=== PATIENT | female | born 1935 | race Caucasian/White ===

== ENCOUNTER → 2016-12-11 | Outpatient (CLI) | payer OTHER ==
[~2016-12-11] MED LIST: AMLO5TAB2 PO; ASPI-498 OR; AZIT500T PO; CARV3.1240 PO; DOCU-94; GABA-339 PO; LEVO125T6 PO; LORA-352 PO; LOSA100T27 PO; MAGN400C3 PO; SUCR1TAB PO; TIOTCAP IN; TRAM-411
[2016-12-11 10:01] LABS: Mean Corpuscular Hemoglobin 29.8 pg (28.0-32.0); White Blood Cell 5.6 10^3/uL (4.4-10.8)
[2016-12-11 10:10] LABS: Urine Bilirubin Negative (Negative); Urine Blood Negative /uL (Negative); Urine Color Yellow (Yellow); Urine Glucose Normal (Normal); Urine Ketone Negative (Negative); Urine Mucus FEW (None Seen); Urine Nitrite Negative (Negative); Urine RBC 1 /hpf (0 - 4); Urine Squamous Epithelial Cell MOD /hpf (<5); Urine Urobilinogen Normal (Negative); Urine pH 6.5 (5.0-8.0)
[2016-12-11 10:14] LABS: Basophils # (auto) 0.1 uL; Basophils % (auto) 2.3 % (0.0-2.0); Eosinophils # (auto) 0.2 uL; Eosinophils % (auto) 3.3 % (0.0-7.0); Hemoglobin 14.8 g/dL (12.2-16.2); Lymphocytes # (auto) 2.1 uL; Lymphocytes % (auto) 36.8 % (10.0-50.0); Mean Corpuscular Hgb Conc. 32.8 g/dL (32.0-36.0); Mean Corpuscular Volume 90.6 fL (80.0-100.0); Mean Platelet Volume 8.8 fL (7.4-10.4); Monocytes # (auto) 0.4 uL; Monocytes % (auto) 7.5 % (0.0-12.0); Neutrophils # (auto) 2.8 uL; Neutrophils % (auto) 50.1 % (37.0-80.0); Platelet Count (auto) 255 10^3/uL (140-450); Red Cell Distribution Width 15.5 % (11.6-16.0)
[2016-12-11 10:29] LABS: Albumin 3.7 g/dL (3.4-5.0); BUN/Creatinine Ratio 14.7; Bilirubin, Total 0.4 mg/dL (0.2-1.0); Calcium 8.9 mg/dL (8.5-10.1); Potassium 4.5 mmol/L (3.5-5.1); Total Protein 7.3 g/dL (6.4-8.2)
[2016-12-11 10:46] LABS: Vitamin B12 > 2000 pg/mL (211-911)
== END | disposition home or self-care (01) ==
LOC: LAB 09:07
PROVIDERS: ATTEND Internal Medicine
DX: J44.9 Chronic obstructive pulmonary disease, unspecified (principal); E03.9 Hypothyroidism, unspecified; I10 Essential (primary) hypertension
CPT/HCPCS: 36415; 80053; 80061; 81001; 82043; 82607; 84439; 84443; 85025; 85652

== ENCOUNTER → 2017-03-12 | Outpatient (CLI) | payer OTHER ==
[2017-03-12 09:11] LABS: BUN/Creatinine Ratio 20.5; Calcium 8.7 mg/dL (8.5-10.1); Potassium 4.1 mmol/L (3.5-5.1)
== END | disposition home or self-care (01) ==
LOC: LAB 08:10
PROVIDERS: ATTEND Internal Medicine
DX: E03.9 Hypothyroidism, unspecified (principal); Z01.812 Encounter for preprocedural laboratory examination
CPT/HCPCS: 80048

== ENCOUNTER → 2017-03-29 | Outpatient (CLI) | payer OTHER ==
[2017-03-29 16:00] LABS: Allen Test Yes; Base Excess 1.7 mmol/L (-2.0-2.0); Blood 02Sat 89.2 % (96-100); Blood COHb 0.9 % (0.5-1.5); Blood MetHb 0.1 % (0.0-1.5); HCO3 25.3 mmol/L (22-26.0); HHb 10.7 % (0.0-5.0); MODE RA; O2Hb 88.3 % (94.0-97.0); PCO2 36.7 mmHg (35.0-45.0); PCO2(T) 36.7 mmHg (35.0-45.0); PO2 54.7 mmHg (80.0-100.0); PO2(T) 54.7 mmHg (80.0-100.0); Sample Type Arterial; pH 7.457 (7.350-7.450)
== END | disposition home or self-care (01) ==
LOC: RT 15:32
PROVIDERS: ATTEND Internal Medicine
DX: J43.9 Emphysema, unspecified (principal)
CPT/HCPCS: 36600; 82805

== ENCOUNTER → 2017-03-29 | Outpatient (CLI) | payer OTHER ==
[2017-03-29 16:52] LABS: Albumin 3.8 g/dL (3.4-5.0); BUN/Creatinine Ratio 21.1; Calcium 8.7 mg/dL (8.5-10.1); Potassium 4.1 mmol/L (3.5-5.1)
[2017-03-29 16:55] LABS: Bilirubin, Total 0.4 mg/dL (0.2-1.0); Total Protein 7.7 g/dL (6.4-8.2)
== END | disposition home or self-care (01) ==
LOC: LAB 16:07
PROVIDERS: ATTEND Internal Medicine
DX: E03.9 Hypothyroidism, unspecified (principal)
CPT/HCPCS: 36415; 36600; 80053; 82805

== ENCOUNTER 2017-09-06 21:25 | Inpatient (IN) | payer OTHER ==
[~2017-09-06] VITALS: Ht 152.4 cm; Wt 66.9 kg
[2017-09-06] MEDS ORDERED: IPRATROPIUM BROM 0.5 MG/2.5ML INH SOL NEB ONE (21:45)
[2017-09-06] MEDS ORDERED: ALBUTEROL SULF 2.5 MG/0.5ML(0.5%) NEB SOLN NEB ONE (21:45)
[2017-09-06] MEDS ORDERED: methylPREDNISolone SOD SUCC 125 MG/2 ML VL IV ONE (21:45)
[2017-09-06 22:01] LABS: Base Excess 1.2 mmol/L (-2.0-2.0); Blood 02Sat 87.4 % (96-100); Blood COHb 1.2 % (0.5-1.5); Blood MetHb 0.3 % (0.0-1.5); HCO3 24.9 mmol/L (22-26.0); HHb 12.4 % (0.0-5.0); MODE NASAL CANNULA; O2Hb 86.1 % (94.0-97.0); PCO2 36.8 mmHg (35.0-45.0); PCO2(T) 36.8 mmHg (35.0-45.0); PO2 49.5 mmHg (80.0-100.0); PO2(T) 49.5 mmHg (80.0-100.0); Sample Type Arterial; pH 7.449 (7.350-7.450)
[2017-09-06] MEDS ORDERED: ENALAPRILAT 1.25 MG/ML-1ML VIAL IV ONE (22:15)
[2017-09-06] MEDS ORDERED: NITROGLYCERIN 50MG/250ML 250 ML IV ONE (22:15)
[2017-09-06 22:29] LABS: Basophils # (auto) 0.1 uL; Basophils % (auto) 0.5 % (0.0-2.0); Eosinophils # (auto) 0.1 uL; Eosinophils % (auto) 0.8 % (0.0-7.0); Hematocrit 42.7 % (36.0-46.0); Hemoglobin 14.4 g/dL (12.2-16.2); Lymphocytes % (auto) 8.5 % (10.0-50.0); Mean Corpuscular Hemoglobin 30.7 pg (28.0-32.0); Mean Corpuscular Hgb Conc. 33.6 g/dL (32.0-36.0); Mean Corpuscular Volume 91.4 fL (80.0-100.0); Mean Platelet Volume 9.4 fL (6.9-10.8); Monocytes # (auto) 0.5 uL; Monocytes % (auto) 4.6 % (0.0-12.0); Neutrophils # (auto) 10.1 uL; Neutrophils % (auto) 85.6 % (37.0-80.0); Nucleated Red Blood Cells % 0.1 %; Platelet Count (auto) 179 10^3/uL (140-450); White Blood Cell 11.8 10^3/uL (4.4-10.8)
[2017-09-06 22:45] LABS: Urine Bilirubin Negative (Negative); Urine Blood Negative /uL (Negative); Urine Color Yellow (Yellow); Urine Glucose Normal (Normal); Urine Ketone Negative (Negative); Urine Nitrite Negative (Negative); Urine RBC <1 /hpf (0 - 4); Urine Squamous Epithelial Cell FEW /hpf (<5); Urine Urobilinogen Normal (Negative); Urine pH 7.5 (5.0-8.0)
[2017-09-06] MEDS ORDERED: NALBUPHINE HCL 10 MG/1ml INJECTION IV ONE (22:45)
[2017-09-06 22:47] LABS: Albumin 3.6 g/dL (3.4-5.0); Anion Gap 8 (5-15); BUN/Creatinine Ratio 19.6; Blood Urea Nitrogen 22 mg/dL (7-18); Calcium 8.4 mg/dL (8.5-10.1); Carbon Dioxide 26 mmol/L (21-32); Chloride 105 mmol/L (98-107); GFR African American 60 mL/min; GFR Non-African American 49 mL/min; Glucose 104 mg/dL (74-106); Magnesium 2.2 mg/dL (1.6-2.6); Potassium 3.6 mmol/L (3.5-5.1); Sodium 139 mmol/L (136-145)
[2017-09-06 22:59] LABS: Alkaline Phosphatase 104 U/L (45-117); Aspartate Aminotransferase 29 U/L (15-37); Bilirubin, Total 0.3 mg/dL (0.2-1.0); Total Protein 7.2 g/dL (6.4-8.2)
[2017-09-06 23:14] LABS: Temperature: 21.1 C (20.0-25.0)
[2017-09-06] MEDS ORDERED: FUROSEMIDE 20 MG/2 ML VIAL IV ONE (23:45)
[2017-09-07] MEDS ORDERED: NITROGLYCERIN 0.4 MG SL TAB SL PRN (03:45)
[2017-09-07] MEDS ORDERED: ONDANSETRON HCL 4 MG/2 ML VIAL IV PRN (03:45)
[2017-09-07] MEDS ORDERED: MORPHINE SULF INJ 2 MG/ML SYRINGE 1ML IV PRN (03:45)
[2017-09-07] MEDS ORDERED: LACTULOSE 20Gm/30ML SOLN PO PRN (03:45)
[2017-09-07] MEDS ORDERED: AZITHROMYCIN 500MG/ 250ML 250 ML IV ONE (04:00)
[2017-09-07] MEDS: methylPREDNISolone SOD SUCC 40 MG/ML VL IV SCH ×2 (04:41→16:10)
[2017-09-07] MEDS: IPRATROPIUM BROM 0.5 MG/2.5ML INH SOL NEB SCH ×5 (05:45→22:33)
[2017-09-07] MEDS: ALBUTEROL SULF 2.5 MG/0.5ML(0.5%) NEB SOLN NEB SCH ×5 (05:45→22:33)
[2017-09-07 06:42] VITALS: BP 95/58
[2017-09-07] MEDS: LEVOTHYROXINE SODIUM 50 MCG TAB PO SCH (06:48)
[2017-09-07 07:41] LABS: Basophils # (auto) 0 uL; Basophils % (auto) 0.2 % (0.0-2.0); Eosinophils # (auto) 0 uL; Hematocrit 35.9 % (36.0-46.0); Hemoglobin 11.6 g/dL (12.2-16.2); Lymphocytes # (auto) 0.8 uL; Lymphocytes % (auto) 4.4 % (10.0-50.0); Mean Corpuscular Hemoglobin 29.8 pg (28.0-32.0); Mean Corpuscular Hgb Conc. 32.3 g/dL (32.0-36.0); Mean Platelet Volume 9.2 fL (6.9-10.8); Monocytes # (auto) 0.4 uL; Monocytes % (auto) 2.4 % (0.0-12.0); Neutrophils # (auto) 16.8 uL; Platelet Count (auto) 130 10^3/uL (140-450); Red Cell Distribution Width 14.9 % (11.8-14.3); White Blood Cell 18.1 10^3/uL (4.4-10.8)
[2017-09-07] MEDS ORDERED: VANCOMYCIN PER PHARMACY 0 MG IV SCH (09:00)
[2017-09-07] MEDS: DOXYCYCLINE HYC 100MG/250ML 250 ML IV SCH ×2 (09:20→21:09)
[2017-09-07] MEDS: FUROSEMIDE 40 MG/4 ML VIAL IV SCH (09:33)
[2017-09-07] MEDS: PANTOPRAZOLE 40 MG/10 ML VIAL IV SCH (09:37)
[2017-09-07] MEDS: ASPirin 81 mg TAB PO SCH (09:42)
[2017-09-07] MEDS: POTASSIUM CHL 20 Meq TABLET PO SCH (09:44)
[2017-09-07] MEDS: GABAPENTIN 300 MG CAP PO SCH ×2 (09:44→21:10)
[2017-09-07] MEDS: MAGNESIUM OXIDE 400 MG TAB PO SCH ×2 (09:45→21:09)
[2017-09-07] MEDS: LOSARTAN POTASSIUM 50 MG TAB PO SCH (09:48)
[2017-09-07] MEDS: amLODIPine BESYLATE 5 MG TAB PO SCH (09:48)
[2017-09-07] MEDS: ENALAPRIL MALEATE 10 MG TAB PO SCH (09:48)
[2017-09-07] MEDS: ENOXAPARIN SOD 30 MG/0.3 ML SYRINGE SC SCH (09:49)
[2017-09-07] MEDS ORDERED: CARVEDILOL 3.125 MG TAB PO SCH (10:00)
[2017-09-07] MEDS ORDERED: VANCOMYCIN 1GM/250ML 250 ML IV SCH (11:00)
[2017-09-07] MEDS ORDERED: ALBUTEROL SULF 2.5 MG/0.5ML(0.5%) NEB SOLN NEB ONE (11:15)
[2017-09-07] MEDS ORDERED: BUDESONIDE (INHALATION) 0.5 MG/2 ML NEB NEB ONE (11:15)
[2017-09-07] MEDS ORDERED: IPRATROPIUM BROM 0.5 MG/2.5ML INH SOL NEB ONE (11:15)
[2017-09-07] MEDS ORDERED: traMADol HCL 50 MG TAB PO SCH ×2 (11:30→16:00)
[2017-09-07 12:10] VITALS: BP 97/52
[2017-09-07] MEDS: traMADol HCL 50 MG TAB PO PRN (16:11)
[2017-09-07] MEDS: BUDESONIDE (INHALATION) 0.5 MG/2 ML NEB NEB SCH (18:56)
[2017-09-07] MEDS: [UNRECOGNIZED DRUG - OTHER] PO SCH (19:07)
[2017-09-07 22:00] VITALS: BP 94/57
[2017-09-08] MEDS: ALBUTEROL SULF 2.5 MG/0.5ML(0.5%) NEB SOLN NEB SCH ×6 (03:08→22:30)
[2017-09-08] MEDS: IPRATROPIUM BROM 0.5 MG/2.5ML INH SOL NEB SCH ×6 (03:08→22:30)
[2017-09-08] MEDS: methylPREDNISolone SOD SUCC 40 MG/ML VL IV SCH ×2 (03:21→15:44)
[2017-09-08] MEDS: [UNRECOGNIZED DRUG - OTHER] PO SCH ×2 (04:55→14:32)
[2017-09-08 05:00] VITALS: BP 100/61
[2017-09-08] MEDS: LEVOTHYROXINE SODIUM 50 MCG TAB PO SCH (06:12)
[2017-09-08 06:16] LABS: Basophils # (auto) 0 uL; Basophils % (auto) 0.2 % (0.0-2.0); Eosinophils # (auto) 0 uL; Hematocrit 36.8 % (36.0-46.0); Hemoglobin 12.4 g/dL (12.2-16.2); Lymphocytes # (auto) 0.9 uL; Mean Corpuscular Hemoglobin 30.3 pg (28.0-32.0); Mean Corpuscular Hgb Conc. 33.7 g/dL (32.0-36.0); Mean Platelet Volume 8.1 fL (6.9-10.8); Monocytes # (auto) 0.7 uL; Monocytes % (auto) 3.6 % (0.0-12.0); Neutrophils # (auto) 17.2 uL; Neutrophils % (auto) 91.2 % (37.0-80.0); Platelet Count (auto) 101 10^3/uL (140-450); Red Cell Distribution Width 15.1 % (11.8-14.3); White Blood Cell 18.9 10^3/uL (4.4-10.8)
[2017-09-08] MEDS: traMADol HCL 50 MG TAB PO PRN ×2 (06:20→14:32)
[2017-09-08 06:59] LABS: BUN/Creatinine Ratio 36.9; Bilirubin, Total 0.5 mg/dL (0.2-1.0); Calcium 8.4 mg/dL (8.5-10.1); Potassium 3.7 mmol/L (3.5-5.1); Total Protein 6.4 g/dL (6.4-8.2)
[2017-09-08 07:47] LABS: B-Type Natriuretic Peptide 227.97 pg/mL (0-100)
[2017-09-08 07:50] LABS: Temperature: 22.3 C (20.0-25.0)
[2017-09-08 09:00] VITALS: BP 117/66
[2017-09-08] MEDS: DOXYCYCLINE HYC 100MG/250ML 250 ML IV SCH (09:34)
[2017-09-08] MEDS: PANTOPRAZOLE 40 MG/10 ML VIAL IV SCH (09:34)
[2017-09-08] MEDS: ENOXAPARIN SOD 30 MG/0.3 ML SYRINGE SC SCH (09:34)
[2017-09-08] MEDS: FUROSEMIDE 40 MG/4 ML VIAL IV SCH (09:35)
[2017-09-08] MEDS: LOSARTAN POTASSIUM 50 MG TAB PO SCH (09:36)
[2017-09-08] MEDS: ASPirin 81 mg TAB PO SCH (09:36)
[2017-09-08] MEDS: GABAPENTIN 300 MG CAP PO SCH ×2 (09:36→21:43)
[2017-09-08] MEDS: ENALAPRIL MALEATE 10 MG TAB PO SCH (09:36)
[2017-09-08] MEDS: MAGNESIUM OXIDE 400 MG TAB PO SCH ×2 (09:36→18:46)
[2017-09-08] MEDS: POTASSIUM CHL 20 Meq TABLET PO SCH (09:36)
[2017-09-08] MEDS: amLODIPine BESYLATE 5 MG TAB PO SCH (09:37)
[2017-09-08] MEDS ORDERED: AZITHROMYCIN 500MG/ 250ML 250 ML IV SCH (10:00)
[2017-09-08] MEDS: BUDESONIDE (INHALATION) 0.5 MG/2 ML NEB NEB SCH ×2 (10:09→22:30)
[2017-09-08 12:50] VITALS: BP 98/48
[2017-09-08 17:00] VITALS: BP 101/61
[2017-09-08] MEDS ORDERED: DOCUSATE SOD 100 MG CAP PO ONE (18:30)
[2017-09-08] MEDS ORDERED: DOCUSATE SOD 100 MG CAP PO PRN (18:30)
[2017-09-08] MEDS ORDERED: diphenhdrAMINE HCL 25 MG CAP PO PRN (18:45)
[2017-09-08] MEDS: [UNRECOGNIZED DRUG - OTHER] PO SCH (18:46)
[2017-09-08] MEDS ORDERED: diphenhdrAMINE HCL 50 MG/1 ML VL IV ONE (19:00)
[2017-09-08] MEDS ORDERED: LORazepam 0.5 MG TAB PO PRN (19:30)
[2017-09-08 22:00] VITALS: BP 103/61
[2017-09-09] MEDS: IPRATROPIUM BROM 0.5 MG/2.5ML INH SOL NEB SCH ×6 (02:38→22:43)
[2017-09-09] MEDS: ALBUTEROL SULF 2.5 MG/0.5ML(0.5%) NEB SOLN NEB SCH ×6 (02:38→22:44)
[2017-09-09] MEDS: methylPREDNISolone SOD SUCC 40 MG/ML VL IV SCH (03:15)
[2017-09-09] MEDS: [UNRECOGNIZED DRUG - OTHER] PO SCH ×2 (04:48→16:10)
[2017-09-09 05:00] VITALS: BP 125/77
[2017-09-09] MEDS: LEVOTHYROXINE SODIUM 50 MCG TAB PO SCH (06:30)
[2017-09-09 09:00] VITALS: BP 124/72
[2017-09-09] MEDS: cefTRIAXone 1GM/50ML D5W 50 ML IV SCH (09:03)
[2017-09-09] MEDS: GABAPENTIN 300 MG CAP PO SCH ×2 (09:50→21:27)
[2017-09-09] MEDS: MAGNESIUM OXIDE 400 MG TAB PO SCH ×2 (09:51→21:26)
[2017-09-09] MEDS: ASPirin 81 mg TAB PO SCH (09:51)
[2017-09-09] MEDS: ENALAPRIL MALEATE 10 MG TAB PO SCH (09:51)
[2017-09-09] MEDS: amLODIPine BESYLATE 5 MG TAB PO SCH (09:52)
[2017-09-09] MEDS: PANTOPRAZOLE 40 MG/10 ML VIAL IV SCH (09:59)
[2017-09-09] MEDS: traMADol HCL 50 MG TAB PO PRN ×2 (09:59→16:09)
[2017-09-09] MEDS: LOSARTAN POTASSIUM 50 MG TAB PO SCH (10:00)
[2017-09-09] MEDS: FUROSEMIDE 40 MG/4 ML VIAL IV SCH (10:00)
[2017-09-09] MEDS: POTASSIUM CHL 20 Meq TABLET PO SCH (10:00)
[2017-09-09] MEDS: ENOXAPARIN SOD 30 MG/0.3 ML SYRINGE SC SCH (10:01)
[2017-09-09] MEDS: BUDESONIDE (INHALATION) 0.5 MG/2 ML NEB NEB SCH ×2 (10:16→19:50)
[2017-09-09] MEDS ORDERED: TRAM50TA2 PO (12:33)
[2017-09-09] MEDS ORDERED: UMEC1AER IN (12:34)
[2017-09-09] MEDS ORDERED: GABA-339 PO (12:35)
[2017-09-09] MEDS ORDERED: AMLO5TAB2 PO (12:36)
[2017-09-09] MEDS ORDERED: CARV6.2551 PO (12:36)
[2017-09-09 13:00] VITALS: BP 107/65
[2017-09-09 17:00] VITALS: BP 119/66
[2017-09-09] MEDS: [UNRECOGNIZED DRUG - OTHER] PO SCH (19:00)
[2017-09-10] MEDS: IPRATROPIUM BROM 0.5 MG/2.5ML INH SOL NEB SCH ×5 (02:46→14:19)
[2017-09-10] MEDS: ALBUTEROL SULF 2.5 MG/0.5ML(0.5%) NEB SOLN NEB SCH ×5 (02:46→14:19)
[2017-09-10 05:15] VITALS: BP 128/75
[2017-09-10] MEDS: [UNRECOGNIZED DRUG - OTHER] PO SCH (06:05)
[2017-09-10] MEDS: LEVOTHYROXINE SODIUM 50 MCG TAB PO SCH (06:05)
[2017-09-10 08:04] VITALS: BP 126/74
[2017-09-10 09:00] VITALS: BP 128/70
[2017-09-10] MEDS: cefTRIAXone 1GM/50ML D5W 50 ML IV SCH (09:35)
[2017-09-10] MEDS: LOSARTAN POTASSIUM 50 MG TAB PO SCH (09:36)
[2017-09-10] MEDS: GABAPENTIN 300 MG CAP PO SCH (09:36)
[2017-09-10] MEDS: MAGNESIUM OXIDE 400 MG TAB PO SCH (09:36)
[2017-09-10] MEDS: ENALAPRIL MALEATE 10 MG TAB PO SCH (09:37)
[2017-09-10] MEDS: amLODIPine BESYLATE 5 MG TAB PO SCH (09:37)
[2017-09-10] MEDS: ASPirin 81 mg TAB PO SCH (09:38)
[2017-09-10] MEDS: ENOXAPARIN SOD 30 MG/0.3 ML SYRINGE SC SCH (09:38)
[2017-09-10] MEDS ORDERED: predniSONE 20 MG TAB PO SCH (10:00)
[2017-09-10] MEDS: BUDESONIDE (INHALATION) 0.5 MG/2 ML NEB NEB SCH (10:19)
[2017-09-10 11:51] VITALS: BP 128/70
== END 2017-09-10 13:40 | disposition home or self-care (01) | DRG 682 ==
LOC: ER 21:25 → TELE 21:26 → WEST WING 09-07 17:26 → TELE-WESTW 09-08 08:16
PROVIDERS: ADMIT Family Medicine; ATTEND Internal Medicine
PROC: 5A09357 Assistance with Respiratory Ventilation, Less than 24 Consecutive Hours, Continuous Positive Airway Pressure (ICD-10-PCS; principal; 2017-09-07)
DX: N17.0 Acute kidney failure with tubular necrosis (principal); J96.21 Acute and chronic respiratory failure with hypoxia; G62.9 Polyneuropathy, unspecified; J44.1 Chronic obstructive pulmonary disease with (acute) exacerbation; J98.11 Atelectasis; D72.829 Elevated white blood cell count, unspecified; E03.9 Hypothyroidism, unspecified; I11.0 Hypertensive heart disease with heart failure; I71.2 Thoracic aortic aneurysm, without rupture; I50.9 Heart failure, unspecified; T38.0X5A Adverse effect of glucocorticoids and synthetic analogues, initial encounter; Z86.79 Personal history of other diseases of the circulatory system; Z87.891 Personal history of nicotine dependence; Z99.81 Dependence on supplemental oxygen
CPT/HCPCS: 36415; 36600; 71010; 71250; 80053; 80061; 81001; 82550; 82805; 83605; 83735; 83880; 84484; 85025; 87040; 87070; 87205; 93005; 93306; 94640; 94660; 97163; C9113; J0696; J3490

== ENCOUNTER → 2017-11-14 | Outpatient (CLI) | payer OTHER ==
[~2017-11-14] MED LIST changes: -AZIT500T PO; -CARV3.1240 PO; +CARV6.2551 PO; -LEVO125T6 PO; +LEVO125T7 PO; -LOSA100T27 PO; -SUCR1TAB PO; -TIOTCAP IN; -TRAM-411; +TRAM50TA2 PO; +UMEC1AER IN
[2017-11-14 16:55] LABS: Basophils # (auto) 0.2 uL; Basophils % (auto) 3.3 % (0.0-2.0); Eosinophils # (auto) 0.2 uL; Eosinophils % (auto) 3.5 % (0.0-7.0); Hematocrit 44.1 % (36.0-46.0); Hemoglobin 14.4 g/dL (12.2-16.2); Lymphocytes # (auto) 2.1 uL; Lymphocytes % (auto) 35.7 % (10.0-50.0); Mean Corpuscular Hemoglobin 29.8 pg (28.0-32.0); Mean Corpuscular Hgb Conc. 32.6 g/dL (32.0-36.0); Mean Corpuscular Volume 91.5 fL (80.0-100.0); Monocytes # (auto) 0.6 uL; Monocytes % (auto) 10.5 % (0.0-12.0); Neutrophils # (auto) 2.8 uL; Nucleated Red Blood Cells % 0.1 %; Platelet Count (auto) 312 10^3/uL (140-450); Red Blood Cells 4.82 10^6/uL (4.0-5.20); Red Cell Distribution Width 15.6 % (11.8-14.3)
[2017-11-14 17:18] LABS: Albumin 3.6 g/dL (3.4-5.0); BUN/Creatinine Ratio 24.6; Bilirubin, Total 0.2 mg/dL (0.2-1.0); Potassium 4.5 mmol/L (3.5-5.1); Total Protein 7.4 g/dL (6.4-8.2)
== END | disposition home or self-care (01) ==
LOC: LAB 16:24
PROVIDERS: ATTEND Internal Medicine
DX: I11.0 Hypertensive heart disease with heart failure (principal); I50.9 Heart failure, unspecified
CPT/HCPCS: 36415; 80053; 85025

== ENCOUNTER → 2017-12-25 | Outpatient (CLI) | payer OTHER ==
[2017-12-25 17:00] LABS: Basophils # (auto) 0.1 uL; Basophils % (auto) 0.9 % (0.0-2.0); Eosinophils # (auto) 0.2 uL; Eosinophils % (auto) 3.7 % (0.0-7.0); Hematocrit 42.9 % (36.0-46.0); Hemoglobin 14.2 g/dL (12.2-16.2); Lymphocytes # (auto) 1.8 uL; Lymphocytes % (auto) 32.6 % (10.0-50.0); Mean Corpuscular Hemoglobin 30.5 pg (28.0-32.0); Mean Corpuscular Hgb Conc. 33.2 g/dL (32.0-36.0); Mean Corpuscular Volume 91.9 fL (80.0-100.0); Monocytes # (auto) 0.6 uL; Monocytes % (auto) 11.6 % (0.0-12.0); Neutrophils # (auto) 2.8 uL; Neutrophils % (auto) 51.2 % (37.0-80.0); Nucleated Red Blood Cells % 0.1 %; Platelet Count (auto) 231 10^3/uL (140-450); Red Blood Cells 4.67 10^6/uL (4.0-5.20); Red Cell Distribution Width 15.4 % (11.8-14.3); White Blood Cell 5.5 10^3/uL (4.4-10.8)
== END | disposition home or self-care (01) ==
LOC: LAB 16:23
PROVIDERS: ATTEND Internal Medicine
DX: E03.9 Hypothyroidism, unspecified (principal); I10 Essential (primary) hypertension; J44.9 Chronic obstructive pulmonary disease, unspecified
CPT/HCPCS: 36415; 84439; 84443; 85025

== ENCOUNTER → 2018-08-26 | Outpatient (CLI) | payer OTHER ==
[~2018-08-26] MED LIST changes: +AMLO5TAB13 PO; -AMLO5TAB2 PO
[2018-08-26 09:24] LABS: Basophils # (auto) 0.1 uL; Eosinophils # (auto) 0.1 uL; Eosinophils % (auto) 2.5 % (0.0-7.0); Hematocrit 47.8 % (36.0-46.0); Hemoglobin 15.8 g/dL (12.2-16.2); Lymphocytes # (auto) 1.4 uL; Lymphocytes % (auto) 24.8 % (10.0-50.0); Mean Corpuscular Hemoglobin 30.5 pg (28.0-32.0); Mean Corpuscular Volume 92.3 fL (80.0-100.0); Monocytes # (auto) 0.6 uL; Monocytes % (auto) 10.8 % (0.0-12.0); Neutrophils # (auto) 3.4 uL; Neutrophils % (auto) 60.9 % (37.0-80.0); Nucleated Red Blood Cells % 0.1 %; Platelet Count (auto) 230 10^3/uL (140-450); Red Blood Cells 5.17 10^6/uL (4.0-5.20); Red Cell Distribution Width 14.5 % (11.8-14.3); White Blood Cell 5.6 10^3/uL (4.4-10.8)
[2018-08-26 09:32] LABS: Urine Bacteria NONE SEEN /hpf (None Seen); Urine Blood Negative /uL (Negative); Urine Specific Gravity 1.007 (1.001-1.035); Urine WBC <1 /hpf (0 - 5)
[2018-08-26 09:51] LABS: Albumin 3.7 g/dL (3.4-5.0); Calcium 9.1 mg/dL (8.5-10.1)
[2018-08-26 09:57] LABS: BUN/Creatinine Ratio 19.7; Bilirubin, Total 0.4 mg/dL (0.2-1.0); Total Protein 7.7 g/dL (6.4-8.2)
== END | disposition home or self-care (01) ==
LOC: LAB 08:08
PROVIDERS: ATTEND Internal Medicine
DX: I10 Essential (primary) hypertension (principal); J44.9 Chronic obstructive pulmonary disease, unspecified
CPT/HCPCS: 36415; 80053; 80061; 81001; 82043; 84439; 84443; 85025; 85652

== ENCOUNTER → 2018-09-09 | Outpatient (CLI) | payer OTHER | END | disposition home or self-care (01) | LOC: LAB 16:37 | PROVIDERS: ATTEND Internal Medicine | DX: I71.2 Thoracic aortic aneurysm, without rupture (principal) | CPT/HCPCS: 36415; 82565; 84520 ==

== ENCOUNTER → 2018-09-10 | Outpatient (CLI) | payer OTHER ==
[~2018-09-10] MED LIST changes: +IOHEXOL 350 MG/ML 100ML IJ ONE
== END | disposition home or self-care (01) ==
LOC: CT 08:09
PROVIDERS: ATTEND Internal Medicine
DX: J43.2 Centrilobular emphysema (principal); I70.0 Atherosclerosis of aorta; I51.7 Cardiomegaly
CPT/HCPCS: 71275; Q9967

== ENCOUNTER 2019-02-02 21:33 | Inpatient (IN) | payer OTHER ==
[~2019-02-02] VITALS: Ht 154.9 cm; Wt 68.1 kg
[~2019-02-02 21:33] MED LIST changes: -IOHEXOL 350 MG/ML 100ML IJ ONE
[2019-02-02 22:31] LABS: Basophils # (auto) 0.1 uL; Basophils % (auto) 0.4 % (0.0-2.0); Eosinophils # (auto) 0.1 uL; Hematocrit 46.7 % (36.0-46.0); Hemoglobin 15.3 g/dL (12.2-16.2); Lymphocytes # (auto) 1.2 uL; Lymphocytes % (auto) 9.3 % (10.0-50.0); Mean Corpuscular Hemoglobin 30.2 pg (28.0-32.0); Mean Corpuscular Hgb Conc. 32.8 g/dL (32.0-36.0); Monocytes # (auto) 0.6 uL; Monocytes % (auto) 4.6 % (0.0-12.0); Neutrophils # (auto) 11.3 uL; Neutrophils % (auto) 84.7 % (37.0-80.0); Nucleated Red Blood Cells % 0.1 %; Platelet Count (auto) 230 10^3/uL (140-450); Red Blood Cells 5.08 10^6/uL (4.0-5.20); Red Cell Distribution Width 14.5 % (11.8-14.3); White Blood Cell 13.3 10^3/uL (4.4-10.8)
[2019-02-02 22:42] LABS: Chloride 104 mmol/L (98-107); Potassium 3.6 mmol/L (3.5-5.1); Sodium 139 mmol/L (136-145)
[2019-02-02 22:47] LABS: Anion Gap 9 (5-15); Blood Urea Nitrogen 13 mg/dL (7-18); Calcium 9.1 mg/dL (8.5-10.1); Carbon Dioxide 26 mmol/L (21-32); Glucose 102 mg/dL (74-106)
[2019-02-02 22:51] LABS: INR 0.93 (0.9-1.15); Partial Thromboplastin Time 25.8 sec (23.78-33.04)
[2019-02-02 22:52] LABS: Alanine Aminotransferase 34 U/L (13-56); Alkaline Phosphatase 114 U/L (45-117); Aspartate Aminotransferase 34 U/L (15-37); BUN/Creatinine Ratio 17.1; Bilirubin, Total 0.5 mg/dL (0.2-1.0); GFR African American 93 mL/min; GFR Non-African American 77 mL/min; Total Protein 7.9 g/dL (6.4-8.2)
[2019-02-02 22:58] LABS: Urine Bacteria FEW /hpf (None Seen); Urine Blood Negative /uL (Negative); Urine Specific Gravity 1.012 (1.001-1.035); Urine WBC 1 /hpf (0 - 5)
[2019-02-02] MEDS ORDERED: ALBUTEROL SULF 2.5 MG/0.5ML(0.5%) NEB SOLN ONE (23:09)
[2019-02-02] MEDS ORDERED: IPRATROPIUM BROM 0.5 MG/2.5ML INH SOL ONE (23:09)
[2019-02-02] MEDS ORDERED: ALBUTEROL SULF 2.5 MG/0.5ML(0.5%) NEB SOLN NEB ONE (23:15)
[2019-02-02] MEDS ORDERED: IPRATROPIUM BROM 0.5 MG/2.5ML INH SOL NEB ONE (23:15)
[2019-02-03] MEDS ORDERED: CARVEDILOL 3.125 MG TAB PO ONE (00:30)
[2019-02-03] MEDS ORDERED: GABAPENTIN 300 MG CAP PO ONE (00:30)
[2019-02-03] MEDS ORDERED: LEVOFLOXACIN 750MG 150 ML IV ONE (01:30)
[2019-02-03] MEDS ORDERED: methylPREDNISolone SOD SUCC 125 MG/2 ML VL IV ONE (01:30)
[2019-02-03] MEDS ORDERED: IPRATROPIUM BROM 0.5 MG/2.5ML INH SOL NEB ONE ×2 (03:00)
[2019-02-03] MEDS ORDERED: ALBUTEROL SULF 2.5 MG/0.5ML(0.5%) NEB SOLN NEB ONE ×2 (03:00)
[2019-02-03] MEDS ORDERED: FUROSEMIDE 20 MG/2 ML VIAL IV ONE (03:45)
[2019-02-03] MEDS ORDERED: ONDANSETRON HCL 4 MG/2 ML VIAL IV PRN (05:30)
[2019-02-03] MEDS ORDERED: ACETAMINOPHEN 500 MG TAB PO PRN (05:30)
[2019-02-03] MEDS ORDERED: GABA-339 PO (05:34)
[2019-02-03] MEDS ORDERED: LEVO112T4 PO (05:34)
[2019-02-03] MEDS ORDERED: TRAM50TA2 PO (05:34)
[2019-02-03] MEDS ORDERED: CARV6.2551 PO (05:34)
[2019-02-03] MEDS ORDERED: traMADol HCL 50 MG TAB PO ONE (05:45)
[2019-02-03] MEDS ORDERED: GABAPENTIN 300 MG CAP PO SCH ×2 (06:00→10:00)
[2019-02-03] MEDS ORDERED: LEVOTHYROXINE SODIUM 112 MCG TAB PO SCH (06:00)
[2019-02-03 06:17] LABS: Calcium 8.9 mg/dL (8.5-10.1); Potassium 3.8 mmol/L (3.5-5.1)
[2019-02-03 06:21] LABS: BUN/Creatinine Ratio 17.9
[2019-02-03] MEDS: IPRATROPIUM BROM 0.5 MG/2.5ML INH SOL NEB SCH ×5 (06:22→23:07)
[2019-02-03] MEDS: ALBUTEROL SULF 2.5 MG/0.5ML(0.5%) NEB SOLN NEB SCH ×5 (06:22→23:11)
[2019-02-03 06:30] LABS: Basophils # (auto) 0 uL; Basophils % (auto) 0.2 % (0.0-2.0); Eosinophils # (auto) 0 uL; Hematocrit 41.5 % (36.0-46.0); Hemoglobin 13.7 g/dL (12.2-16.2); Lymphocytes # (auto) 0.6 uL; Lymphocytes % (auto) 3.6 % (10.0-50.0); Mean Corpuscular Hgb Conc. 32.9 g/dL (32.0-36.0); Mean Corpuscular Volume 91.2 fL (80.0-100.0); Monocytes # (auto) 0.3 uL; Monocytes % (auto) 1.7 % (0.0-12.0); Neutrophils # (auto) 15.2 uL; Neutrophils % (auto) 94.5 % (37.0-80.0); Platelet Count (auto) 190 10^3/uL (140-450); Red Blood Cells 4.56 10^6/uL (4.0-5.20); Red Cell Distribution Width 14.4 % (11.8-14.3); White Blood Cell 16.1 10^3/uL (4.4-10.8)
[2019-02-03 07:19] VITALS: BP 127/53
[2019-02-03] MEDS: CARVEDILOL 3.125 MG TAB PO SCH ×2 (08:00→18:00)
[2019-02-03] MEDS ORDERED: cefTRIAXone 1GM/50ML D5W 50 ML IV SCH (09:00)
--- NOTE | 2019-02-03 10:10 | NUR ---
ADMIT: Telemetry admit from ER LYNNELEDY admitted to Telemetry unit after SBAR received. Patient oriented to FAUSTINO ENGEL, primary RN, unit, room, bed, and unit policies regarding patient care and visiting hours. Patient now on continuous telemetry monitoring, tele box # [id number] and telemetry reading on arrival to unit is SR 67. Patient placed on bedside oxygen at 3L NC, weighed by bedscale and encouraged to call if they need something. All questions and concerns addressed, patient verbalized understanding. Note:
[2019-02-03 10:18] VITALS: BP 95/58
[2019-02-03] MEDS ORDERED: ASPI81TA27 PO (11:32)
[2019-02-03] MEDS ORDERED: AMLO5TAB13 PO (11:32)
[2019-02-03] MEDS ORDERED: UMEC1AER IN (11:42)
[2019-02-03 12:04] VITALS: BP 93/52
--- NOTE | 2019-02-03 13:42 | NUR ---
Respiratory note: PT IN NO DISTRESS AT THIS TIME. PT REFUSED MED NEB AT THIS TIME. BS ARE CLEAR TO DIM BILATERALLY. PT KNOWS TO CALL NURSE IF SOB OCCURS.
[2019-02-03] MEDS: traMADol HCL 50 MG TAB PO PRN (15:27)
[2019-02-03 16:49] VITALS: BP 95/50
[2019-02-03] MEDS: GABAPENTIN 300 MG CAP PO SCH (18:15)
[2019-02-03] MEDS: methylPREDNISolone SOD SUCC 40 MG/ML VL IV SCH (18:15)
--- NOTE | 2019-02-03 19:16 | NUR ---
CLOSING SHIFT NOTE: Report given to NOC RNMaira. Endorsed care of patient.
[2019-02-03] MEDS: BUDESONIDE (INHALATION) 0.5 MG/2 ML NEB NEB SCH (20:01)
[2019-02-03 20:05] VITALS: BP 108/44
[2019-02-03] MEDS ORDERED: DOCUSATE SOD 100 MG CAP PO PRN (21:00)
[2019-02-03] MEDS: LEVOFLOXACIN 500 MG TAB PO SCH (21:54)
[2019-02-04] VITALS (7 sets, daily range): BP systolic 93–119; BP diastolic 56–59
[2019-02-04] MEDS ORDERED: LEVOFLOXACIN 500MG 100 ML IV SCH (02:00)
[2019-02-04] MEDS: traMADol HCL 50 MG TAB PO PRN ×2 (04:06→15:40)
[2019-02-04] MEDS: methylPREDNISolone SOD SUCC 40 MG/ML VL IV SCH ×5 (06:40→23:52)
[2019-02-04] MEDS: GABAPENTIN 300 MG CAP PO SCH ×2 (06:41→20:02)
[2019-02-04] MEDS: LEVOTHYROXINE SODIUM 100 MCG TAB PO SCH (06:41)
[2019-02-04] MEDS: LEVOTHYROXINE SODIUM 25 MCG TAB PO SCH (06:42)
[2019-02-04] MEDS: IPRATROPIUM BROM 0.5 MG/2.5ML INH SOL NEB SCH ×5 (06:46→22:35)
[2019-02-04] MEDS: ALBUTEROL SULF 2.5 MG/0.5ML(0.5%) NEB SOLN NEB SCH ×5 (06:46→22:35)
--- NOTE | 2019-02-04 07:30 | NUR ---
Opening Shift Note Assuming care of patient at this time. Patient is awake, alert, and oriented. Patient is resting in bed with bed locked and lowered, side rails up x 2. Patient shows no signs or symptoms of distress or shortness of breath. Patient denies pain. Instructed patient on the plan of care for today and to call for assistance as needed. Call light within reach. Will continue to round hourly and as needed.
[2019-02-04] MEDS: CARVEDILOL 3.125 MG TAB PO SCH ×2 (08:00→18:00)
[2019-02-04] MEDS ORDERED: AZITHROMYCIN 500MG/ 250ML 250 ML IV SCH (10:00)
[2019-02-04] MEDS: BUDESONIDE (INHALATION) 0.5 MG/2 ML NEB NEB SCH ×2 (10:33→19:27)
--- NOTE | 2019-02-04 15:34 | NUR ---
Page to Dr. Barajas Page to Dr. Barajas at this time per patient's request. She would like her gabapentin dose changed to her home dose. Awaiting callback.
--- NOTE | 2019-02-04 17:40 | NUR ---
Refusing Gabapentin Patient is refusing 1800 dose of gabapentin at this time. Patient would like to take it at 2000 instead.
--- NOTE | 2019-02-04 17:45 | NUR ---
Gabapentin dose Spoke with Dr. Barajas. He is aware of patient's home medication schedule of gabapentin. Per Dr. Barajas, it is fine to change medication dosage to reflect home schedule.
--- NOTE | 2019-02-04 18:16 | NUR ---
Call to pharmacy Call to pharmacy at this time in order to arrange patient's gabapentin dosage and schedule.
--- NOTE | 2019-02-04 19:01 | NUR ---
Closing Note Patient is resting in bed. Family at bedside. Patient shows no signs or symptoms of distress of pain. Will endorse care to the director [employer] for [employer] RN.
--- NOTE | 2019-02-04 19:31 | NUR ---
OPENING NOTES RECEIVED REPORT FROM DAY SHIFT NURSE ENMANUEL. PT IS A/OX4 WITH NO S/S OF DISTRESS NOR PAIN. FAMILY IS AT BEDSIDE. BED IS IN LOWEST POSITION WITH SIDE RAILS UP X 2. BED BRAKES ARE LOCKED AND CALL LIGHT IS WITH IN REACH. HOB IS 30 DEGREES. DISCUSSED POC WITH PATIENT, AND PATIENT VERBALIZED UNDERSTANDING. WILL CONTINUE TO MONITOR Q 1HR.
--- NOTE | 2019-02-04 19:53 | NUR ---
AMBULATED PT AMBULATED AROUND THE ENTIRE FLOOR WITH FAMILY MEMBER.
[2019-02-04] MEDS: LEVOFLOXACIN 500 MG TAB PO SCH (21:59)
[2019-02-05] VITALS (7 sets, daily range): BP systolic 109–140; BP diastolic 55–75
[2019-02-05] MEDS: GABAPENTIN 300 MG CAP PO SCH ×3 (04:45→20:00)
[2019-02-05] MEDS: traMADol HCL 50 MG TAB PO PRN ×3 (04:46→15:14)
[2019-02-05] MEDS: IPRATROPIUM BROM 0.5 MG/2.5ML INH SOL NEB SCH ×5 (06:10→22:20)
[2019-02-05] MEDS: ALBUTEROL SULF 2.5 MG/0.5ML(0.5%) NEB SOLN NEB SCH ×5 (06:10→22:20)
[2019-02-05] MEDS: LEVOTHYROXINE SODIUM 25 MCG TAB PO SCH (06:22)
[2019-02-05] MEDS: LEVOTHYROXINE SODIUM 100 MCG TAB PO SCH (06:22)
[2019-02-05] MEDS: methylPREDNISolone SOD SUCC 40 MG/ML VL IV SCH ×2 (06:22→12:12)
--- NOTE | 2019-02-05 07:13 | NUR ---
ENDORSED CARE TO DAY SHIFT NURSEENMANUEL.
--- NOTE | 2019-02-05 07:30 | NUR ---
Opening Shift Note Assuming care of patient at this time. Patient is awake, alert, and oriented x4. Patient denies pain and shows no signs or symptoms of distress or shortness of breath. Patient is resting in bed. Bed is locked and lowered with side rails up x2. Instructed patient on the plan of care for today and to call for assistance as needed. Call light within reach. Will continue to round hourly and as needed.
[2019-02-05] MEDS: CARVEDILOL 3.125 MG TAB PO SCH ×2 (08:00→18:04)
[2019-02-05] MEDS: BUDESONIDE (INHALATION) 0.5 MG/2 ML NEB NEB SCH ×2 (09:59→18:22)
--- NOTE | 2019-02-05 10:00 | NUR ---
Ambulation Patient is ambulating hallways at this time with family. Using wheelchair to push. Oxygen, 2L nasal cannula on.
--- NOTE | 2019-02-05 18:00 | NUR ---
Family at bedside Daughter at bedside.
--- NOTE | 2019-02-05 19:21 | NUR ---
Closing Shift Note Patient is resting in bed. Patient denies pain and shows no signs or symptoms of shortness of breath. Daughter at bedside. Will endorse care to the fence erector supervisor RN.
--- NOTE | 2019-02-05 19:30 | NUR ---
OPEN SHIFT NOTE PATIENT IS ALERT AND ORIENTED X4. ON 2L NASAL CANULA, LEFT AC 20 GAUGE IS INTACT AND PATENT. POC DISCUSSED AND QUESTIONS ANSWERED. BED IS LOCKED IN LOWEST POSITION WITH SIDE RAILS UP X2 FOR SAFETY. CALL LIGHT IS WITHIN REACH. WILL CONTINUE TO ROUND Q1HR AND PRN.
[2019-02-05] MEDS: LEVOFLOXACIN 500 MG TAB PO SCH (22:08)
[2019-02-05] MEDS: DOCUSATE SOD 100 MG CAP PO SCH (22:08)
--- NOTE | 2019-02-06 03:16 | NUR ---
DISCONTINUED TELEMETRY PER PROTOCOL. PATIENTS VITALS ARE STABLE AND RUNNING SINUS RHYTHM.
[2019-02-06 04:48] VITALS: BP 113/61
[2019-02-06] MEDS: GABAPENTIN 300 MG CAP PO SCH ×2 (05:22→16:00)
[2019-02-06] MEDS: traMADol HCL 50 MG TAB PO PRN ×2 (05:25→16:00)
[2019-02-06] MEDS: LEVOTHYROXINE SODIUM 25 MCG TAB PO SCH (06:28)
[2019-02-06] MEDS: LEVOTHYROXINE SODIUM 100 MCG TAB PO SCH (06:28)
[2019-02-06] MEDS: IPRATROPIUM BROM 0.5 MG/2.5ML INH SOL NEB SCH ×3 (07:14→14:20)
[2019-02-06] MEDS: ALBUTEROL SULF 2.5 MG/0.5ML(0.5%) NEB SOLN NEB SCH ×3 (07:14→14:20)
--- NOTE | 2019-02-06 07:30 | NUR ---
Opening Shift Note Assuming care of patient at this time. Patient is resting in bed. Bed is locked and lowered with side rails up x2. Patient denies pain. Patient shows no signs or symptoms of distress or shortness of breath. Instructed patient on the plan of care for today and to call for assistance as needed. Call light within reach. Will continue to round hourly and as needed.
[2019-02-06 08:52] VITALS: BP 138/73
[2019-02-06] MEDS: DOCUSATE SOD 100 MG CAP PO SCH (09:39)
[2019-02-06] MEDS: CARVEDILOL 3.125 MG TAB PO SCH (09:41)
[2019-02-06] MEDS ORDERED: predniSONE 20 MG TAB PO SCH (10:00)
--- NOTE | 2019-02-06 10:30 | NUR ---
Ambulation Patient is ambulating in hallway with student nurse at this time.
[2019-02-06] MEDS: BUDESONIDE (INHALATION) 0.5 MG/2 ML NEB NEB SCH (10:45)
--- NOTE | 2019-02-06 12:00 | NUR ---
Nutrition Assessment Notes please see attached link for complete assessment Est. Needs BW [id number] kcal (23-25 kcal/kgBW), 68-74 gms pro (1.0-1.1 gms/kgBW). Will continue to monitor pertinent labs and reassess nutrient need prn Addendum: 02/06/19 at [address] Amended: Links added.
[2019-02-06 13:00] VITALS: BP 119/73
[2019-02-06 15:32] VITALS: BP 119/73
[2019-02-06] MEDS ORDERED: LEVO-28 PO (16:16)
[2019-02-06] MEDS ORDERED: PRE5T PO (16:16)
[2019-02-06] MEDS ORDERED: POLY335015 PO (16:48)
[2019-02-06 17:03] VITALS: BP 137/82
--- NOTE | 2019-02-06 17:24 | NUR ---
Re: Discharge Discharge instructions given as ordered. Encourage to follow up with PMD as instructed. All questions and concerns addressed. Patient verbalized understanding. Medication reconciliation form completed and copy given to patient. IV removed with catheter intact, pressure dressing applied. Patient taken to vehicle via wheelchair with all personal belongings, accompanied by staff and family member. No distress noted at time of departure.
== END 2019-02-06 17:25 | disposition home or self-care (01) | DRG 189 ==
LOC: ER 21:39 → MERGE 02-03 05:37 → TELE 02-03 05:37 → TELE-WESTW 02-03 09:53 → WEST WING 02-06 03:18
PROVIDERS: ADMIT Nurse Practitioner Family; ATTEND Internal Medicine Pulmonary Disease
DX: J96.20 Acute and chronic respiratory failure, unspecified whether with hypoxia or hypercapnia (principal); J44.1 Chronic obstructive pulmonary disease with (acute) exacerbation; J44.0 Chronic obstructive pulmonary disease with (acute) lower respiratory infection; D72.829 Elevated white blood cell count, unspecified; I11.9 Hypertensive heart disease without heart failure; J20.9 Acute bronchitis, unspecified; K59.00 Constipation, unspecified; F17.210 Nicotine dependence, cigarettes, uncomplicated; Z90.710 Acquired absence of both cervix and uterus; Z99.81 Dependence on supplemental oxygen; Z90.49 Acquired absence of other specified parts of digestive tract; Z79.899 Other long term (current) drug therapy
CPT/HCPCS: 36415; 36600; 71045; 80048; 80053; 81001; 82805; 83605; 83880; 84443; 84484; 85025; 85610; 85730; 87040; 87070; 87205; 94640; 94761; 96365; 96366; 96375; G0378; J1956

== ENCOUNTER → 2019-08-12 | Outpatient (CLI) | payer OTHER ==
[~2019-08-12] MED LIST changes: -AMLO5TAB13 PO; +AMLO5TAB15 PO; +ASPI-404 PO; +LEVO-28 PO; +LEVO112T4 PO; +POLY335015 PO; +PRE5T PO
[2019-08-12 08:38] LABS: Basophils # (auto) 0 uL; Basophils % (auto) 0.7 % (0.0-2.0); Eosinophils # (auto) 0.2 uL; Eosinophils % (auto) 2.8 % (0.0-7.0); Hematocrit 44.8 % (36.0-46.0); Lymphocytes # (auto) 1.5 uL; Mean Corpuscular Hemoglobin 30.6 pg (28.0-32.0); Mean Corpuscular Hgb Conc. 33.6 g/dL (32.0-36.0); Mean Corpuscular Volume 91.1 fL (80.0-100.0); Monocytes # (auto) 0.6 uL; Monocytes % (auto) 8.8 % (0.0-12.0); Neutrophils % (auto) 63.7 % (37.0-80.0); Platelet Count (auto) 217 10^3/uL (140-450); Red Blood Cells 4.91 10^6/uL (4.0-5.20); Red Cell Distribution Width 14.5 % (11.8-14.3); White Blood Cell 6.3 10^3/uL (4.4-10.8)
[2019-08-12 08:45] LABS: Urine Bacteria FEW /hpf (None Seen); Urine Blood Negative /uL (Negative); Urine Mucus FEW (None Seen); Urine Specific Gravity 1.017 (1.001-1.035); Urine WBC 3 /hpf (0 - 5)
[2019-08-12 09:22] LABS: Albumin 3.6 g/dL (3.4-5.0); BUN/Creatinine Ratio 20.3; Total Protein 7.1 g/dL (6.4-8.2)
[2019-08-12 09:27] LABS: Bilirubin, Total 0.3 mg/dL (0.2-1.0)
== END | disposition home or self-care (01) ==
LOC: LAB 08:19
PROVIDERS: ATTEND Internal Medicine
DX: I10 Essential (primary) hypertension (principal); J44.9 Chronic obstructive pulmonary disease, unspecified
CPT/HCPCS: 36415; 80053; 80061; 81001; 84439; 84443; 85025; 85652

== ENCOUNTER 2019-10-08 17:43 | Emergency (ER) | payer OTHER ==
[~2019-10-08] VITALS: Ht 152.4 cm; Wt 65.8 kg
[2019-10-08 19:48] VITALS: BP 137/65
== END 2019-10-08 19:48 | disposition home or self-care (01) ==
LOC: EDBD 17:43 → ER 17:43
DX: R10.84 Generalized abdominal pain (principal); K59.00 Constipation, unspecified; Z79.899 Other long term (current) drug therapy; Z88.0 Allergy status to penicillin; Z88.1 Allergy status to other antibiotic agents; Z88.6 Allergy status to analgesic agent
CPT/HCPCS: 74176

== ENCOUNTER → 2022-05-02 | Outpatient (CLI) | payer OTHER ==
[~2022-05-02] MED LIST changes: +AMLO-489 PO; -AMLO5TAB15 PO; -ASPI-404 PO; +ASPI-543 PO; -LORA-352 PO; +LORA10TA6 PO
[2022-05-02 12:54] LABS: Basophils # (auto) 0 10 ^3/uL (0-0.2); Basophils % (auto) 0.7 % (0.0-2.0); Eosinophils # (auto) 0.1 10 ^3/uL (0-0.8); Eosinophils % (auto) 1.8 % (0.0-7.0); Hematocrit 43.7 % (36.0-46.0); Hemoglobin 14.1 g/dL (12.2-16.2); Lymphocytes # (auto) 1.6 10 ^3/uL (0.4-5.4); Lymphocytes % (auto) 24.6 % (10.0-50.0); Mean Corpuscular Hemoglobin 28.8 pg (28.0-32.0); Mean Corpuscular Hgb Conc. 32.2 g/dL (32.0-36.0); Mean Corpuscular Volume 89.5 fL (80.0-100.0); Monocytes # (auto) 0.7 10 ^3/uL (0-1.3); Monocytes % (auto) 10.6 % (0.0-12.0); Neutrophils % (auto) 62.3 % (37.0-80.0); Red Blood Cells 4.89 10^6/uL (4.0-5.20); White Blood Cell 6.5 10^3/uL (4.4-10.8)
[2022-05-02 13:24] LABS: Albumin 3.5 g/dL (3.4-5.0); Calcium 9.5 mg/dL (8.5-10.1); Potassium 4.2 mmol/L (3.5-5.1)
[2022-05-02 13:27] LABS: BUN/Creatinine Ratio 16.7; Bilirubin, Total 0.4 mg/dL (0.2-1.0); Total Protein 7.2 g/dL (6.4-8.2)
== END | disposition home or self-care (01) ==
LOC: LAB 12:30
PROVIDERS: ATTEND Internal Medicine
DX: R19.7 Diarrhea, unspecified (principal); I10 Essential (primary) hypertension
CPT/HCPCS: 36415; 80053; 85025

== ENCOUNTER → 2022-07-25 | Emergency (ER) | payer OTHER ==
[~2022-07-25] VITALS: Ht 152.4 cm; Wt 57.2 kg
[~2022-07-25] MED LIST changes: +IOHEXOL 350 MG/ML 100ML IJ ONE
[2022-07-25 15:40] VITALS: BP 146/72
[2022-07-25 16:58] LABS: Basophils # (auto) 0 10 ^3/uL (0-0.2); Basophils % (auto) 0.9 % (0.0-2.0); Eosinophils # (auto) 0.1 10 ^3/uL (0-0.8); Eosinophils % (auto) 1.4 % (0.0-7.0); Hematocrit 45.3 % (36.0-46.0); Hemoglobin 14.6 g/dL (12.2-16.2); Lymphocytes # (auto) 1.3 10 ^3/uL (0.4-5.4); Lymphocytes % (auto) 24.9 % (10.0-50.0); Mean Corpuscular Hemoglobin 29.2 pg (28.0-32.0); Mean Corpuscular Hgb Conc. 32.2 g/dL (32.0-36.0); Mean Corpuscular Volume 90.7 fL (80.0-100.0); Monocytes # (auto) 0.5 10 ^3/uL (0-1.3); Monocytes % (auto) 9.6 % (0.0-12.0); Neutrophils # (auto) 3.4 10 ^3/uL (1.6-8.6); Neutrophils % (auto) 63.2 % (37.0-80.0); Nucleated Red Blood Cells % 0.1 %; Red Cell Distribution Width 15.7 % (11.8-14.3); White Blood Cell 5.4 10^3/uL (4.4-10.8)
[2022-07-25 17:16] LABS: Albumin 3.7 g/dL (3.4-5.0); Anion Gap 9 (5-15); Blood Urea Nitrogen 8 mg/dL (7-18); Calcium 9.3 mg/dL (8.5-10.1); Carbon Dioxide 26 mmol/L (21-32); Chloride 107 mmol/L (98-107); Glucose 88 mg/dL (74-106); Lipase 134 U/L (73-393); Potassium 4.3 mmol/L (3.5-5.1); Sodium 142 mmol/L (136-145)
[2022-07-25 17:18] LABS: Alanine Aminotransferase 31 U/L (13-56); Aspartate Aminotransferase 32 U/L (15-37); GFR African American 150 mL/min; GFR Non-African American 124 mL/min
[2022-07-25 17:20] LABS: Alkaline Phosphatase 94 U/L (45-117); Bilirubin, Total 0.6 mg/dL (0.2-1.0); Total Protein 6.8 g/dL (6.4-8.2)
[2022-07-25 20:51] LABS: Urine Bacteria NONE SEEN /hpf (None Seen); Urine Blood Negative /uL (Negative); Urine Specific Gravity 1.033 (1.001-1.035); Urine WBC <1 /hpf (0 - 5)
== END | disposition left against medical advice (07) ==
LOC: ER 14:50
DX: R10.84 Generalized abdominal pain (principal); J44.9 Chronic obstructive pulmonary disease, unspecified; I10 Essential (primary) hypertension; Z90.49 Acquired absence of other specified parts of digestive tract; Z90.89 Acquired absence of other organs; Z90.710 Acquired absence of both cervix and uterus; Z79.899 Other long term (current) drug therapy; Z88.0 Allergy status to penicillin; Z88.6 Allergy status to analgesic agent; Z88.8 Allergy status to other drugs, medicaments and biological substances
CPT/HCPCS: 36415; 74177; 80053; 81001; 83605; 83690; 83880; 84484; 85025; 93005; 99285; Q9967

== ENCOUNTER 2023-08-20 16:45 | Emergency (ER) | payer OTHER ==
[~2023-08-20] VITALS: Ht 152.4 cm; Wt 54.0 kg
[~2023-08-20 16:45] MED LIST changes: -AMLO-489 PO; +AMLO1TAB22 PO; -IOHEXOL 350 MG/ML 100ML IJ ONE; -LEVO-28 PO; +LEVO500T91 PO
[2023-08-20 17:43] VITALS: BP 155/76; PULSE 61; RESP 18; O2SAT 94
== END 2023-08-20 18:08 | disposition home or self-care (01) ==
LOC: EDBD 16:45 → EDUNIT# 16:45 → ER 16:45
DX: G45.9 Transient cerebral ischemic attack, unspecified (principal); J44.9 Chronic obstructive pulmonary disease, unspecified; I10 Essential (primary) hypertension; Z90.49 Acquired absence of other specified parts of digestive tract; Z90.89 Acquired absence of other organs; Z90.710 Acquired absence of both cervix and uterus; Z98.890 Other specified postprocedural states
CPT/HCPCS: 70551

== ENCOUNTER → 2023-09-10 | Outpatient (CLI) | payer OTHER ==
[2023-09-10 11:03] LABS: Hematocrit 42.4 % (36.0-46.0); Hemoglobin 14.2 g/dL (12.2-16.2); Mean Corpuscular Hemoglobin 30.2 pg (28.0-32.0); Mean Corpuscular Hgb Conc. 33.6 g/dL (32.0-36.0); Red Blood Cells 4.71 10^6/uL (4.0-5.20); Red Cell Distribution Width 13.8 % (11.8-14.3); White Blood Cell 5.7 10^3/uL (4.4-10.8)
[2023-09-10 11:26] LABS: Urine Bacteria NONE SEEN /hpf (None Seen); Urine Blood Negative /uL (Negative); Urine Clarity Clear (Clear); Urine Color Yellow (Yellow); Urine Protein, UAD Negative (Negative); Urine Specific Gravity 1.009 (1.001-1.035); Urine Urobilinogen Normal (Negative); Urine WBC <1 /hpf (0 - 5)
[2023-09-10 11:32] LABS: Band Neutrophils % (manual) 0; Metamyelocytes % 0; Myelocytes % 0; Promyelocytes % 0; Reactive Lymphocytes 0
[2023-09-10 11:51] LABS: Erythrocyte Sedimentation Rate 28 mm/hr (0-20)
[2023-09-10 12:11] LABS: Alanine Aminotransferase 16 U/L (7-40); Alkaline Phosphatase 75 U/L (46-116); Anion Gap 5 (5-15); Aspartate Aminotransferase 24 U/L (13-40); BUN/Creatinine Ratio 17.2 (10.0-20.0); Blood Urea Nitrogen 10 mg/dL (9-23); Calcium 9.6 mg/dL (8.5-10.1); Carbon Dioxide 30 mmol/L (20-30); Chloride 105 mmol/L (98-107); Glucose 90 mg/dL (74-106); LDL Cholesterol 66 mg/dL (< 100); Sodium 140 mmol/L (136-145); Triglycerides 73 mg/dL (< 150)
[2023-09-10 12:12] LABS: Bilirubin, Total 0.7 mg/dL (0.2-1.0); Cholesterol 122 mg/dL (< 200); HDL Cholesterol 41 mg/dL (40-59); Total Protein 6.7 g/dL (5.7-8.2)
[2023-09-10 12:17] LABS: Free T4 (Free Thyroxine) 1.47 ng/dL (0.89-1.76)
[2023-09-10 13:33] LABS: Basophils % (manual) 1 (0.0-2.0); Blast Cells 2; Eosinophils % (manual) 4 (0-7); Lymphocytes % (manual) 22 (10.0-50.0); Monocytes % (manual) 9 (0-12)
[2023-09-10 13:34] LABS: Platelet Estimate Adequate
== END | disposition home or self-care (01) ==
LOC: LAB 10:37
PROVIDERS: ATTEND Internal Medicine
DX: I10 Essential (primary) hypertension (principal); J44.1 Chronic obstructive pulmonary disease with (acute) exacerbation; M85.88 Other specified disorders of bone density and structure, other site
CPT/HCPCS: 36415; 80053; 80061; 81001; 82306; 82607; 84439; 84443; 85007; 85027; 85652

== ENCOUNTER → 2024-03-16 | Outpatient (CLI) | payer OTHER ==
[2024-03-16 15:20] LABS: Basophils # (auto) 0.1 10 ^3/uL (0-0.2); Eosinophils # (auto) 0.3 10 ^3/uL (0-0.8); Eosinophils % (auto) 4.4 % (0.0-7.0); Hematocrit 43.2 % (36.0-46.0); Hemoglobin 14.1 g/dL (12.2-16.2); Lymphocytes # (auto) 1.7 10 ^3/uL (0.4-5.4); Lymphocytes % (auto) 29.5 % (10.0-50.0); Mean Corpuscular Hemoglobin 29.6 pg (28.0-32.0); Mean Corpuscular Hgb Conc. 32.7 g/dL (32.0-36.0); Mean Corpuscular Volume 90.7 fL (80.0-100.0); Monocytes # (auto) 0.6 10 ^3/uL (0-1.3); Monocytes % (auto) 10.6 % (0.0-12.0); Neutrophils # (auto) 3.2 10 ^3/uL (1.6-8.6); Neutrophils % (auto) 54.5 % (37.0-80.0); Nucleated Red Blood Cells % 0.1 %; Red Blood Cells 4.76 10^6/uL (4.0-5.20); Red Cell Distribution Width 15.1 % (11.8-14.3); White Blood Cell 5.9 10^3/uL (4.4-10.8)
[2024-03-16 15:39] LABS: Alanine Aminotransferase 26 U/L (7-40); Albumin 4.1 g/dL (3.2-4.8); Alkaline Phosphatase 93 U/L (46-116); Anion Gap 4 (5-15); Aspartate Aminotransferase 27 U/L (13-40); BUN/Creatinine Ratio 19.7 (10.0-20.0); Blood Urea Nitrogen 12 mg/dL (9-23); Carbon Dioxide 31 mmol/L (20-30); Chloride 104 mmol/L (98-107); Glucose 89 mg/dL (74-106); Potassium 4.1 mmol/L (3.5-5.1); Sodium 139 mmol/L (136-145)
[2024-03-16 15:40] LABS: Bilirubin, Total 0.6 mg/dL (0.2-1.0); Total Protein 6.6 g/dL (5.7-8.2)
== END | disposition home or self-care (01) ==
LOC: LAB 14:58
PROVIDERS: ATTEND Internal Medicine
DX: E03.9 Hypothyroidism, unspecified (principal); J44.9 Chronic obstructive pulmonary disease, unspecified
CPT/HCPCS: 36415; 80053; 84439; 84443; 85025

== ENCOUNTER → 2024-04-17 | Outpatient (CLI) | payer OTHER | END | disposition home or self-care (01) | LOC: LAB 10:47 | PROVIDERS: ATTEND Internal Medicine | DX: I71.20 Thoracic aortic aneurysm, without rupture, unspecified (principal) | CPT/HCPCS: 36415; 82565; 84520 ==

== ENCOUNTER 2024-05-20 06:31 | Inpatient (IN) | payer OTHER ==
[~2024-05-20] VITALS: Ht 152.4 cm; Wt 50.0 kg
[2024-05-20] VITALS (7 sets, daily range): BP systolic 89; BP diastolic 48; PULSE 102–130; RESP 16–24; O2SAT 93–96
[2024-05-20] MEDS: TERBUTALINE SULFATE 1 MG/ML 1ML VIAL SC ONE ×2 (06:45→11:23)
[2024-05-20 07:12] LABS: Basophils # (auto) 0 10 ^3/uL (0-0.2); Basophils % (auto) 0.5 % (0.0-2.0); Eosinophils # (auto) 0.1 10 ^3/uL (0-0.8); Eosinophils % (auto) 1.6 % (0.0-7.0); Hematocrit 42.6 % (36.0-46.0); Hemoglobin 14.2 g/dL (12.2-16.2); Lymphocytes # (auto) 1.5 10 ^3/uL (0.4-5.4); Lymphocytes % (auto) 17.5 % (10.0-50.0); Mean Corpuscular Hemoglobin 30.7 pg (28.0-32.0); Mean Corpuscular Hgb Conc. 33.3 g/dL (32.0-36.0); Monocytes # (auto) 0.7 10 ^3/uL (0-1.3); Neutrophils # (auto) 6.3 10 ^3/uL (1.6-8.6); Neutrophils % (auto) 72.4 % (37.0-80.0); Nucleated Red Blood Cells % 0.1 %; Red Blood Cells 4.63 10^6/uL (4.0-5.20); Red Cell Distribution Width 14.8 % (11.8-14.3); White Blood Cell 8.7 10^3/uL (4.4-10.8)
[2024-05-20 07:26] LABS: INR 1.01 (0.9-1.15); Partial Thromboplastin Time 26.2 SEC (24.5-34.5); Prothrombin Time 10.7 sec (9.3-11.8)
[2024-05-20] MEDS: AZITHROMYCIN 250 MG TAB PO ONE (07:29)
[2024-05-20] MEDS: MAGNESIUM SULFATE 1GM/100ML 100 ML IV SCH (07:29)
[2024-05-20] MEDS: HYDROCORTISONE SOD SUCC 100 MG/2ML INJ VIAL IV ONE (07:29)
[2024-05-20] MEDS: predniSONE 20 MG TAB PO ONE (07:32)
[2024-05-20 07:35] LABS: Alanine Aminotransferase 45 U/L (7-40); Alkaline Phosphatase 89 U/L (46-116); Anion Gap 6 (5-15); Aspartate Aminotransferase 29 U/L (13-40); Blood Urea Nitrogen 18 mg/dL (9-23); Calcium 9.9 mg/dL (8.7-10.4); Carbon Dioxide 26 mmol/L (20-30); Chloride 101 mmol/L (98-107); Glucose 97 mg/dL (74-106); Potassium 4.3 mmol/L (3.5-5.1); Sodium 133 mmol/L (136-145)
[2024-05-20 07:36] LABS: Bilirubin, Total 0.5 mg/dL (0.2-1.0); Total Protein 6.4 g/dL (5.7-8.2)
[2024-05-20] MEDS: IPRATROPIUM BROM 0.5 MG/2.5ML INH SOL NEB ONE (09:45)
[2024-05-20] MEDS ORDERED: PANTOPRAZOLE 40 MG/10 ML VIAL INJ IV ONE (09:45)
[2024-05-20] MEDS ORDERED: IPRATROPIUM BROM 0.5 MG/2.5ML INH SOL NEB PRN (09:45)
[2024-05-20] MEDS: ALBUTEROL SULF 2.5 MG/0.5ML(0.5%) NEB SOLN NEB ONE (09:45)
[2024-05-20] MEDS ORDERED: ALBUTEROL SULF 2.5 MG/0.5ML(0.5%) NEB SOLN NEB PRN (09:45)
[2024-05-20] MEDS ORDERED: AZITHROMYCIN 500MG/ 250ML 250 ML IV ONE (09:45)
[2024-05-20] MEDS: cefTRIAXone 1GM/50ML D5W 50 ML IV ONE (09:49)
[2024-05-20] MEDS: SODIUM CHLORIDE 0.9% 1,350 ML IV ONE (09:55)
[2024-05-20] MEDS ORDERED: AZITHROMYCIN 500MG/ 250ML 250 ML IV SCH (10:00)
[2024-05-20] MEDS: FUROSEMIDE 40 MG/4 ML VIAL IV ONE (10:02)
[2024-05-20] MEDS: dilTIAZem 25 MG/5 ML VIAL IV ONE ×2 (10:15→10:24)
[2024-05-20] MEDS ORDERED: NITROGLYCERIN 0.4 MG SL TAB SL PRN (10:30)
[2024-05-20] MEDS: PANTOPRAZOLE 40 MG/10 ML VIAL INJ IV SCH (11:23)
[2024-05-20] MEDS: methylPREDNISolone SOD SUCC 125 MG/2 ML VL IV ONE (11:23)
[2024-05-20] MEDS: ENOXAPARIN SOD 60 MG/0.6 ML SYRINGE SC SCH (11:24)
[2024-05-20] MEDS: CARVEDILOL 3.125 MG TAB PO ONE (11:30)
[2024-05-20] MEDS: dilTIAZem 125mg/125ml BAG KIT 125 ML IV SCH (13:05)
[2024-05-20] MEDS ORDERED: GABAPENTIN 300 MG CAP PO SCH (14:00)
[2024-05-20] MEDS ORDERED: methylPREDNISolone SOD SUCC 125 MG/2 ML VL IV SCH (14:00)
[2024-05-20] MEDS: AMIODARONE BOLUS KIT 100 ML IV ONE (14:15)
[2024-05-20] MEDS: GABAPENTIN 300 MG CAP PO SCH (14:38)
[2024-05-20] MEDS: AMIODARONE 450mg/250ml AE 250 ML IV SCH (15:20)
[2024-05-20 15:34] LABS: Urine Bacteria None Seen /hpf (None Seen); Urine WBC None Seen /hpf (0 - 5)
[2024-05-20 15:50] LABS: Urine Blood Negative /uL (Negative); Urine Clarity Clear (Clear); Urine Color Colorless (Yellow); Urine Protein, UAD Negative (Negative); Urine Specific Gravity 1.003 (1.001-1.035); Urine Urobilinogen Normal (Negative)
[2024-05-20] MEDS: traMADol HCL 50 MG TAB PO PRN (15:53)
[2024-05-20] MEDS: IOHEXOL 350 MG/ML 100ML IJ ONE (16:17)
[2024-05-20] MEDS: IPRATROPIUM BROM 0.5 MG/2.5ML INH SOL NEB SCH (17:24)
[2024-05-20] MEDS: ATORVASTATIN 20 MG TAB PO SCH (21:35)
[2024-05-20] MEDS: DOCUSATE SOD 100 MG CAP PO SCH (21:35)
[2024-05-20] MEDS: CARVEDILOL 3.125 MG TAB PO SCH (21:41)
[2024-05-20] MEDS: NOREPINEPHRINE 8 MG/250ML KIT 250 ML IV SCH (21:58)
[2024-05-21] VITALS (16 sets, daily range): BP systolic 86–110; BP diastolic 61–73; PULSE 58–132; RESP 14–19; TEMP 97.4–98.6; O2SAT 92–100
[2024-05-21] MEDS: LEVOTHYROXINE SODIUM 25 MCG TAB PO SCH (06:19)
[2024-05-21] MEDS: LEVOTHYROXINE SODIUM 100 MCG TAB PO SCH (06:19)
[2024-05-21 06:22] LABS: Basophils # (auto) 0 10 ^3/uL (0-0.2); Basophils % (auto) 0.2 % (0.0-2.0); Eosinophils # (auto) 0 10 ^3/uL (0-0.8); Hematocrit 39.2 % (36.0-46.0); Hemoglobin 13.3 g/dL (12.2-16.2); Lymphocytes # (auto) 0.9 10 ^3/uL (0.4-5.4); Lymphocytes % (auto) 10.5 % (10.0-50.0); Mean Corpuscular Hemoglobin 30.8 pg (28.0-32.0); Mean Corpuscular Hgb Conc. 33.9 g/dL (32.0-36.0); Mean Corpuscular Volume 91.1 fL (80.0-100.0); Monocytes # (auto) 0.7 10 ^3/uL (0-1.3); Monocytes % (auto) 8.8 % (0.0-12.0); Neutrophils # (auto) 6.6 10 ^3/uL (1.6-8.6); Neutrophils % (auto) 80.5 % (37.0-80.0); Nucleated Red Blood Cells % 0.1 %; Red Blood Cells 4.31 10^6/uL (4.0-5.20); Red Cell Distribution Width 14.3 % (11.8-14.3); White Blood Cell 8.2 10^3/uL (4.4-10.8)
[2024-05-21 06:48] LABS: Alanine Aminotransferase 46 U/L (7-40); Albumin 3.6 g/dL (3.2-4.8); Alkaline Phosphatase 82 U/L (46-116); Anion Gap 9 (5-15); Aspartate Aminotransferase 31 U/L (13-40); BUN/Creatinine Ratio 19.4 (10.0-20.0); Blood Urea Nitrogen 14 mg/dL (9-23); Calcium 9.1 mg/dL (8.7-10.4); Carbon Dioxide 21 mmol/L (20-30); Chloride 106 mmol/L (98-107); Glucose 139 mg/dL (74-106); Magnesium 2.3 mg/dL (1.6-2.6); Potassium 4.1 mmol/L (3.5-5.1); Sodium 136 mmol/L (136-145)
[2024-05-21 06:49] LABS: Bilirubin, Total 0.4 mg/dL (0.2-1.0)
[2024-05-21] MEDS: methylPREDNISolone SOD SUCC 40 MG/ML VL IV SCH (09:04)
[2024-05-21] MEDS: FUROSEMIDE 20 MG/2 ML VIAL IV SCH ×2 (09:04→17:42)
[2024-05-21] MEDS: cefTRIAXone 1GM/50ML D5W 50 ML IV SCH (09:04)
[2024-05-21] MEDS: ASPirin-EC 81 mg tab PO SCH (09:05)
[2024-05-21] MEDS: DOXYCYCLINE 100MG/250ML 250 ML IV SCH (09:05)
[2024-05-21] MEDS: ENOXAPARIN SOD 30 MG/0.3 ML SYRINGE SC SCH (09:07)
[2024-05-21] MEDS ORDERED: FLUT1AER3 IN (09:50)
[2024-05-21] MEDS: AMIODARONE 450mg/250ml AE 250 ML IV SCH (10:07)
[2024-05-21] MEDS: ALBUMIN 25% 50 ML IV ONE (18:11)
[2024-05-21] MEDS: APIXABAN 2.5 MG TAB PO SCH (21:48)
[2024-05-22] VITALS (18 sets, daily range): BP systolic 101–112; BP diastolic 61–86; PULSE 81–124; RESP 16–22; TEMP 97–98.1; O2SAT 92–100
[2024-05-22] MEDS: LACTULOSE 20Gm/30ML SOLN PO SCH (02:24)
[2024-05-22 05:48] LABS: Alanine Aminotransferase 72 U/L (7-40); Albumin 3.5 g/dL (3.2-4.8); Alkaline Phosphatase 73 U/L (46-116); Anion Gap 9 (5-15); Aspartate Aminotransferase 47 U/L (13-40); BUN/Creatinine Ratio 18.1 (10.0-20.0); Bilirubin, Total 0.4 mg/dL (0.2-1.0); Blood Urea Nitrogen 13 mg/dL (9-23); Calcium 9.6 mg/dL (8.7-10.4); Carbon Dioxide 20 mmol/L (20-30); Chloride 103 mmol/L (98-107); Glucose 118 mg/dL (74-106); Magnesium 2.2 mg/dL (1.6-2.6); Potassium 4.1 mmol/L (3.5-5.1); Sodium 132 mmol/L (136-145)
[2024-05-22 07:01] LABS: Basophils # (auto) 0 10 ^3/uL (0-0.2); Basophils % (auto) 0.2 % (0.0-2.0); Eosinophils # (auto) 0 10 ^3/uL (0-0.8); Hematocrit 39.3 % (36.0-46.0); Hemoglobin 13.3 g/dL (12.2-16.2); Lymphocytes # (auto) 1.3 10 ^3/uL (0.4-5.4); Lymphocytes % (auto) 12.9 % (10.0-50.0); Mean Corpuscular Hemoglobin 30.8 pg (28.0-32.0); Mean Corpuscular Hgb Conc. 33.9 g/dL (32.0-36.0); Mean Corpuscular Volume 90.9 fL (80.0-100.0); Monocytes # (auto) 0.9 10 ^3/uL (0-1.3); Monocytes % (auto) 8.4 % (0.0-12.0); Neutrophils # (auto) 8.1 10 ^3/uL (1.6-8.6); Neutrophils % (auto) 78.5 % (37.0-80.0); Nucleated Red Blood Cells % 0.1 %; Red Blood Cells 4.32 10^6/uL (4.0-5.20); Red Cell Distribution Width 14.6 % (11.8-14.3); White Blood Cell 10.3 10^3/uL (4.4-10.8)
[2024-05-22] MEDS ORDERED: LACTULOSE 20Gm/30ML SOLN PO ONE (08:41)
[2024-05-22] MEDS: FUROSEMIDE 20 MG/2 ML VIAL IV SCH ×2 (09:04→18:27)
[2024-05-22] MEDS ORDERED: LACTULOSE 20Gm/30ML SOLN PO SCH (10:00)
[2024-05-22] MEDS ORDERED: AZITHROMYCIN 500MG/ 250ML 250 ML IV STA (11:15)
[2024-05-22] MEDS: FUROSEMIDE 40 MG/4 ML VIAL IV ONE (12:29)
[2024-05-22] MEDS: SPIRONOLACTONE 25 MG TAB PO ONE (16:59)
[2024-05-22] MEDS: METOPROLOL SUCCINATE XL 50 MG TAB PO ONE (17:00)
[2024-05-22] MEDS: IPRATROPIUM BROM 0.5 MG/2.5ML INH SOL NEB SCH (18:00)
[2024-05-22] MEDS: DOXYCYCLINE 100MG/250ML 250 ML IV STA (18:23)
[2024-05-22] MEDS: LACTULOSE 20Gm/30ML SOLN PO STA (18:24)
[2024-05-22] MEDS: LEVALBUTEROL HCL 1.25 MG/3 ML NEB NEB SCH (19:14)
[2024-05-23] VITALS (14 sets, daily range): BP systolic 96–114; BP diastolic 70–84; PULSE 57–122; RESP 16–19; TEMP 97–98; O2SAT 94–98
[2024-05-23] MEDS: DOXYCYCLINE 100MG/250ML 250 ML IV SCH (05:05)
[2024-05-23] MEDS: EMPAGLIFLOZIN 10 MG TAB PO SCH (09:58)
[2024-05-23] MEDS: METOPROLOL SUCCINATE XL 50 MG TAB PO SCH (09:59)
[2024-05-23] MEDS: SPIRONOLACTONE 25 MG TAB PO SCH (10:00)
[2024-05-23] MEDS ORDERED: AZITHROMYCIN 500MG/ 250ML 250 ML IV SCH (10:00)
[2024-05-23] MEDS ORDERED: DOXY1CAP57 PO ×2 (12:11→20:16)
[2024-05-23] MEDS ORDERED: POTA-36 PO ×2 (12:11→20:16)
[2024-05-23] MEDS ORDERED: SPIR25TA PO (12:11)
[2024-05-23] MEDS ORDERED: CEPH250C PO ×2 (12:11→20:16)
[2024-05-23] MEDS ORDERED: APIX2.5T PO ×3 (12:11→20:16)
[2024-05-23] MEDS ORDERED: FURO40TA4 PO ×2 (12:11→20:16)
[2024-05-23] MEDS ORDERED: ATOR20TA50 PO ×2 (12:11→20:16)
[2024-05-23] MEDS ORDERED: EMPA1TAB PO ×2 (12:11→20:16)
[2024-05-23] MEDS ORDERED: PRED20TA2 PO ×2 (12:11→20:16)
[2024-05-23] MEDS ORDERED: METO-6 PO (12:11)
[2024-05-23] MEDS ORDERED: SPIR25TA8 PO (20:16)
[2024-05-23] MEDS ORDERED: METO25TA93 PO (20:16)
[2024-05-23] MEDS ORDERED: METOPROLOL SUCCINATE XL 50 MG TAB PO SCH (22:00)
[2024-05-24] MEDS ORDERED: METOPROLOL SUCCINATE XL 50 MG TAB PO SCH (10:00)
== END 2024-05-23 20:45 | disposition home or self-care (01) | DRG 871 ==
LOC: ER 06:31 → TELE 10:19 → TELE-WESTW 23:32
PROVIDERS: ADMIT Internal Medicine Pulmonary Disease; ATTEND Internal Medicine Pulmonary Disease
DX: A41.9 Sepsis, unspecified organism (principal); I50.21 Acute systolic (congestive) heart failure; J15.9 Unspecified bacterial pneumonia; R57.0 Cardiogenic shock; J96.21 Acute and chronic respiratory failure with hypoxia; J15.69 Pneumonia due to other Gram-negative bacteria; J44.1 Chronic obstructive pulmonary disease with (acute) exacerbation; J44.0 Chronic obstructive pulmonary disease with (acute) lower respiratory infection; E03.9 Hypothyroidism, unspecified; I48.91 Unspecified atrial fibrillation; I11.0 Hypertensive heart disease with heart failure; I71.20 Thoracic aortic aneurysm, without rupture, unspecified; E78.5 Hyperlipidemia, unspecified; I27.20 Pulmonary hypertension, unspecified; G62.9 Polyneuropathy, unspecified; I08.1 Rheumatic disorders of both mitral and tricuspid valves; Z90.49 Acquired absence of other specified parts of digestive tract; Z90.710 Acquired absence of both cervix and uterus; Z87.891 Personal history of nicotine dependence; Z82.49 Family history of ischemic heart disease and other diseases of the circulatory system; Z88.5 Allergy status to narcotic agent; Z88.1 Allergy status to other antibiotic agents; Z88.0 Allergy status to penicillin; Z88.8 Allergy status to other drugs, medicaments and biological substances; Z79.82 Long term (current) use of aspirin; Z79.899 Other long term (current) drug therapy; Z99.81 Dependence on supplemental oxygen
CPT/HCPCS: 36415; 71045; 71275; 80053; 81001; 82306; 82607; 83036; 83605; 83735; 83880; 84443; 84484; 85025; 85379; 85610; 85730; 87040; 87070; 87205; 93005; 93306; 93970; 94640; 96365; 96367; 96372; 96375; 97163; 99291; G0378; J2470; J3490